=== PATIENT | male | born 1940 | race Caucasian/White ===

== ENCOUNTER 2023-03-17 12:59 | Emergency (ER) | payer MEDICARE, MEDICAID ==
[~2023-03-17] VITALS: Ht 165.1 cm; Wt 65.6 kg
[~2023-03-17 12:59] MED LIST: ASPI-1009 PO; ATOR80TA PO; BAC10T PO; CLOP75TA34 PO; FLO0.4C PO; FOLI0.4T14 PO; NITR0.4T51 SL; OMEP-84 PO; VALS160T2 PO; VERA180T PO
[2023-03-17 13:07] VITALS: BP 147/59
[2023-03-19] MEDS ORDERED: METO25TA6 PO (14:44)
[2023-03-19] MEDS ORDERED: DOCU-338 PO (14:44)
[2023-03-19] MEDS ORDERED: LISI20TA28 PO (14:44)
[2023-03-19] MEDS ORDERED: ALLO100T PO (14:44)
== END 2023-03-17 14:47 | disposition home or self-care (01) ==
LOC: ER 13:00
DX: K40.90 Unilateral inguinal hernia, without obstruction or gangrene, not specified as recurrent (principal); Z88.8 Allergy status to other drugs, medicaments and biological substances; Z79.899 Other long term (current) drug therapy; Z79.82 Long term (current) use of aspirin
CPT/HCPCS: 99281; A6449